=== PATIENT | female | born 1945 | race Caucasian/White ===

== ENCOUNTER 2017-11-03 07:31 | Observation (INO) | payer MEDICARE ==
[~2017-11-03] VITALS: Ht 148.6 cm; Wt 80.3 kg
[~2017-11-03 07:31] MED LIST: ADVAIR HFA 230-12 GM INH; ALENDRONATE SOD70 MG PO; AMLODIPINE BESYL5 MG PO; ATORVASTATIN CA20 MG PO; BENZONATATE100 MG PO; CALCIUM 600 +1 EAC8 PO; FEXOFENADINE H180 MG PO; LOSARTAN POTASS25 MG PO; NEURONTIN300 MG PO; NORVASC10 MG PO; OMEPRAZOLE20 M1 PO; POTASSIUM GLUCO90 MG PO; POTASSIUM GLUCO99 M1 PO; VITAMIN B-121000 MCG PO; VITAMIN C WITH500 MG PO; VITAMIN D-32000 UNIT PO; VITAMIN E400 UNI2 PO; Z.0.HYDROCHLOROTH12. PO; Z.0.NORVASC5 MG PO; Z.0.ZOCOR10 MG; Z.0.ZOCOR20 MG PO; ZYRTEC10 MG PO
[2017-11-03] MEDS ORDERED: ONDANSETRON HCL INJ 2 MG/ML VIAL ONE (07:55)
[2017-11-03] MEDS ORDERED: MORPHINE SULFATE 2 MG/ML SYR IV STA ×2 (07:55→12:30)
[2017-11-03] MEDS ORDERED: ONDANSETRON HCL INJ 2 MG/ML VIAL IV STA ×2 (07:55→12:29)
[2017-11-03] MEDS ORDERED: SODIUM CHLORIDE 0.9% 1000ML 1,000 ML IV STA (07:55)
--- NOTE | 2017-11-03 08:22 | Diagnostic Imaging Report ---
PROCEDURE: CHEST SINGLE (PORTABLE) COMPARISON: 11/02/2016. INDICATIONS: COUGH, VOMITING FINDINGS: LUNGS: No consolidations or edema. PLEURA: No effusions or pneumothorax. HEART \T\ MEDIASTINUM: The heart is within normal size-limits. BONES \T\ SOFT TISSUES: No acute findings. CONCLUSION: No acute cardiopulmonary abnormality. Dictated by: Tate Stern M.D. on 11/03/2017 at 8:22 Electronically approved by: Tate Stern M.D. on 11/03/2017 at 8:22
[2017-11-03 09:02] LABS: BASOPHILS % 0.1 % (0.0-1.0); EOSINOPHILS % 0.2 % (0.0-6.0); HEMATOCRIT 47.2 % (34.2-44.1); HEMOGLOBIN 15.7 g/dL (12.0-16.0); LYMPHOCYTES # (AUTO) 0.3 (1.0-3.2); LYMPHOCYTES % 2.4 % (18.0-39.1); MEAN CORPUSCULAR HEMOGLOBIN 29.6 pg (28-32); MEAN CORPUSCULAR HGB CONC 33.3 g/dL (31-35); MEAN CORPUSCULAR VOLUME 88.9 fL (81-99); MONOCYTES # (AUTO) 0.6 (0.2-0.8); MONOCYTES % 4.2 % (4.4-11.3); NEUTROPHILS # (AUTO) 13.2 (2.1-6.9); NEUTROPHILS % 92.7 % (38.7-80.0); PLATELET COUNT 252 x10e3/uL (140-360); RED BLOOD COUNT 5.31 x10e6/uL (3.6-5.1); RED CELL DISTRIBUTION WIDTH 14.3 % (11.7-14.4)
[2017-11-03 09:18] LABS: ALANINE AMINOTRANSFERASE 27 IU/L (0-55); ALBUMIN 3.9 g/dL (3.5-5.0); ALBUMIN/GLOBULIN RATIO 1.3 (0.8-2.0); ALKALINE PHOSPHATASE 68 IU/L (40-150); AMYLASE 76 U/L (25-125); ANION GAP 12.4 mmol/L (8-16); BLOOD UREA NITROGEN 29 mg/dL (7-26); BUN/CREATININE RATIO 39 (6-25); CALCIUM 8.5 mg/dL (8.4-10.2); CARBON DIOXIDE 25 mmol/L (22-29); CHLORIDE 108 mmol/L (98-107); CREATINE KINASE 32 IU/L (29-168); CREATININE, SERUM 0.75 mg/dL (0.57-1.11); EST GLOMERULAR FILTRATION RATE > 60 ML/MIN (60-); GLUCOSE 142 mg/dL (74-118); LIPASE 35 U/L (8-78); POTASSIUM 3.4 mmol/L (3.5-5.1); SODIUM 142 mmol/L (136-145)
--- NOTE | 2017-11-03 10:30 | Diagnostic Imaging Report ---
PROCEDURE:US ABDOMEN LIMITED COMPARISON:None. INDICATIONS:Right upper quadrant pain TECHNIQUE: Montanez-scale and color doppler transverse and longitudinal images of the right upper quadrant of the abdomen were obtained. FINDINGS: Liver: 12.7 cm in right mid-clavicular line. Normal parenchymal echogenicity. No masses. Main portal vein: 0.8 cm in caliber. Gallbladder: No shadowing calculus, wall thickening, or pericholecystic fluid. Common Bile Duct: 0.3 cm in caliber. Sonographic Ball's sign: Reported as negative. Right kidney: 10.4 cm in length. Normal renal cortical echogenicity. No solid masses or hydronephrosis. Pancreas: The visualized portions are unremarkable. Inferior vena cava: Patent Aorta: Non-aneurysmal Ascites: None in the right upper quadrant of the abdomen. CONCLUSION: No cholelithiasis or sonographic evidence of acute cholecystitis. Dictated by: Tate Stern M.D. on 11/03/2017 at 10:30 Electronically approved by: Tate Stern M.D. on 11/03/2017 at 10:30
[2017-11-03] MEDS ORDERED: SODIUM CHLORIDE 0.9% 1000ML 1,000 ML ONE (11:12)
[2017-11-03] MEDS ORDERED: DIATRIZOATE MEGL/DIATRIZOA SOD 30 ML BTL PO ONE (11:13)
[2017-11-03] MEDS ORDERED: ONDANSETRON HCL 4 MG ORAL DISINTEGRATING TAB PO ONE (12:30)
[2017-11-03] MEDS ORDERED: ACETAMINOPHEN 325 MG TAB PO ONE (12:45)
[2017-11-03 13:06] LABS: BILIRUBIN,URINE 1+ (NEGATIVE); KETONES,URINE NEGATIVE (NEGATIVE); LEUKOCYTE ESTERASE ,URINE NEGATIVE (NEGATIVE); NITRITE,URINE NEGATIVE (NEGATIVE); URINE UROBILINOGEN 0.2 mg/dL (0.2 - 1)
[2017-11-03 13:07] LABS: CLARITY,URINE SL CLOUDY (CLEAR); COLOR,URINE YELLOW (YELLOW); PROTEIN,URINE DIPSTICK 1+ (NEGATIVE)
[2017-11-03 13:27] LABS: BACTERIA,URINE FEW /HPF; EPITHELIAL CELLS,URINE FEW /LPF; MUCUS,URINE MODERATE (RARE); WBC,URINE (MAN) 0-5 /HPF (0-5)
--- NOTE | 2017-11-03 14:32 | Diagnostic Imaging Report ---
PROCEDURE: CT ABDOMEN AND PELVIS WITHOUT CONTRAST TECHNIQUE: The abdomen and pelvis were scanned utilizing a multidetector helical scanner from the diaphragm to the lesser trochanter after the oral administration of Gastrografin. No IV contrast was administered because of per physician request. No IV access. Coronal and sagittal multiplanar reformations were obtained. Total DLP: 637.17 mGy-cm COMPARISON: CT abdomen pelvis 05/21/2012. INDICATIONS: LOWER ABD PAIN FINDINGS: ABSENCE OF INTRAVENOUS CONTRAST DECREASES SENSITIVITY FOR DETECTION OF FOCAL LESIONS AND VASCULAR PATHOLOGY. LOWER THORAX: The 5.1 mm nodule in the right upper lobe abutting the minor fissure is unchanged and consistent with intraparenchymal lymph node (series 2 image 2). HEPATOBILIARY: No focal hepatic lesions. No biliary ductal dilatation. SPLEEN: No splenomegaly. PANCREAS: No focal masses or ductal dilatation. ADRENALS: No adrenal nodules. KIDNEYS/URETERS: No hydronephrosis, stones, or solid mass lesions. 0.2 cm stone in the lower pole of the left kidney. Punctate 1 mm stone in the lower pole the right kidney. Left parapelvic renal cysts. PELVIC ORGANS/BLADDER: Mcmillan catheter is in place. Bladder is decompressed. Uterus is absent. Bilateral ovaries are atrophic. PERITONEUM / RETROPERITONEUM: No free air or fluid. LYMPH NODES: No lymphadenopathy. VESSELS: Unremarkable. GI TRACT: No distention or wall thickening. Appendix is partially visualized with a small appendicolith. BONES AND SOFT TISSUES: Unremarkable. IMPRESSION: Punctate bilateral renal stones. Dictated by: Andrew Gordillo M.D. on 11/03/2017 at 14:32 Electronically approved by: Andrew Gordillo M.D. on 11/03/2017 at 14:32
[2017-11-03] MEDS ORDERED: ONDANSETRON HCL INJ 2 MG/ML VIAL IV PRN (16:30)
[2017-11-03] MEDS ORDERED: MORPHINE SULFATE 2 MG/ML SYR IV PRN (16:30)
[2017-11-03] MEDS: SODIUM CHLORIDE 0.9% 1000ML 1,000 ML IV SCH (16:40)
--- OUTSIDE RECORDS SUMMARY | 2017-11-03 16:41 | XMS REPORT ---
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 Allergies, Adverse Reactions, Alerts This patient has no known allergies or adverse reactions. Medications This patient has no known medications. Results Test Description Test Time Test Comments Text Results Atomic Results Result Comments CT ABDOMEN/PELVIS WO [place] [address] Patient Name: EMILEE PARKS MR #: [id number] : 1945 Age/Sex: 72/F Req #: [id number] Adm Physician: Ordered by: ROGELIO ALICEA MD Report #: [id number] Location: ER Room/Bed: Procedure: 0314- 0021 CT/CT ABDOMEN/PELVIS WO Exam Date: 11/03/17 Exam Time: 1405 REPORT STATUS: Signed PROCEDURE: CT ABDOMEN AND PELVIS WITHOUT CONTRAST TECHNIQUE: The abdomen and pelvis were scanned utilizing a multidetector helical scanner from the diaphragm to the lesser trochanter after the oral administration of Gastrografin. No IV contrast was administered because of per physician request. No IV access. Coronal and sagittal multiplanar reformations were obtained. Total DLP: 637.17 mGy- cm COMPARISON: CT abdomen pelvis 05/21/2012. INDICATIONS: LOWER ABD PAIN FINDINGS: ABSENCE OF INTRAVENOUS CONTRAST DECREASES SENSITIVITY FOR DETECTION OF FOCAL LESIONS AND VASCULAR PATHOLOGY. LOWER THORAX: The 5.1 mm nodule in the right upper lobe abutting the minor fissure is unchanged and consistent with intraparenchymal lymph node (series 2 image 2). HEPATOBILIARY: No focal hepatic lesions. No biliary ductal dilatation. SPLEEN: No splenomegaly. PANCREAS: No focal masses or ductal dilatation. ADRENALS: No adrenal nodules. KIDNEYS/URETERS: No hydronephrosis, stones, or solid mass lesions. 0.2 cm stone in the lower pole of the left kidney. Punctate 1 mm stone in the lower pole the right kidney. Left parapelvic renal cysts. PELVIC ORGANS/BLADDER: Mcmillan catheter is in place. Bladder is decompressed. Uterus is absent. Bilateral ovaries are atrophic. PERITONEUM / RETROPERITONEUM: No free air or fluid. LYMPH NODES: No lymphadenopathy. VESSELS: Unremarkable. GI TRACT: No distention or wall thickening. Appendix is partially visualized with a small appendicolith. BONES AND SOFT TISSUES: Unremarkable. IMPRESSION: Punctate bilateral renal stones. Dictated by: Feliz Chávez M.D. on 11/03/2017 at 14:32 Electronically approved by: Feliz Chávez M.D. on 11/03/2017 at 14:32 Dictated By: FELIZ CHÁVEZ MD 1432 Transcribed By: JOANA on 11/03/17 1432 COPY TO: ROGELIO ALICEA MD CHEST [facility] (PORTABLE) [place] [address] Patient Name: EMILEE PARKS MR #: [id number] : 1945 Age/Sex: 72/F Req #: [id number] Adm Physician: Ordered by: ROGELIO ALICEA MD Report #: [id number] Location: Room/Bed: Procedure: [id number] DX/CHEST SINGLE (PORTABLE) Exam Date: 11/03/17 Exam Time: 08 REPORT STATUS: Signed PROCEDURE: CHEST SINGLE (PORTABLE) COMPARISON: 11/02/2016. INDICATIONS: COUGH, VOMITING FINDINGS: LUNGS: No consolidations or edema. PLEURA: No effusions or pneumothorax. HEART T MEDIASTINUM: The heart is within normal size-limits. BONES T SOFT TISSUES: No acute findings. CONCLUSION: No acute cardiopulmonary abnormality. Dictated by : Nic Broussard M.D. on 11/03/2017 at 8:22 Electronically approved by: Nic Broussard M.D. on 11/03/2017 at 8:22 Dictated By: NIC BROUSSARD MD 1 Transcribed By : JOANA on 11/03/17821 COPY TO: ROGELIO ALICEA MD US ABDOMEN LIMITED [place] [address] Patient Name: EMILEE PARKS MR #: [id number] : 1945 Age/Sex: 72/F Req #: [id number] Adm Physician: Ordered by: ROGELIO ALICEA MD Report #: [id number] Location: ER Room/Bed: Procedure: 0314- 0004 US/US ABDOMEN LIMITED Exam Date: Exam Time: REPORT STATUS: Signed PROCEDURE: US ABDOMEN LIMITED COMPARISON: None. INDICATIONS: Right upper quadrant pain TECHNIQUE: Montanez-scale and color doppler transverse and longitudinal images of the right upper quadrant of the abdomen were obtained. FINDINGS: Liver: 12.7 cm in right mid-clavicular line. Normal parenchymal echogenicity. No masses. Main portal vein: 0.8 cm in caliber. Gallbladder: No shadowing calculus, wall thickening, or pericholecystic fluid. Common Bile Duct: 0.3 cm in caliber. Sonographic Ball's sign: Reported as negative. Right kidney: 10.4 cm in length. Normal renal cortical echogenicity. No solid masses or hydronephrosis. Pancreas: The visualized portions are unremarkable. Inferior vena cava: Patent Aorta: Non-aneurysmal Ascites: None in the right upper quadrant of the abdomen. CONCLUSION: No cholelithiasis or sonographic evidence of acute cholecystitis. Dictated by: Nic Broussard M.D. on 11/03/2017 at 10:30 Electronically approved by: Nic Broussard M.D. on 11/03/2017 at 10:30 Dictated By: NIC BROUSSARD MD 1030 Transcribed By: JOANA on 11/03/17 1030 COPY TO: ROGELIO ALICEA MD
[2017-11-03 17:12] VITALS: BP 157/70
[2017-11-03 19:55] VITALS: BP 157/70
[2017-11-03 20:44] VITALS: BP 148/66
[2017-11-03 23:54] VITALS: BP 134/62
[2017-11-03 23:56] VITALS: BP 134/62
[2017-11-04] VITALS (8 sets, daily range): BP systolic 138–164; BP diastolic 63–74
[2017-11-04] MEDS: SODIUM CHLORIDE 0.9% 1000ML 1,000 ML IV SCH ×3 (00:17→16:50)
[2017-11-04] MEDS ORDERED: ACETAMINOPHEN 325 MG TAB PO PRN (06:30)
[2017-11-04 06:42] LABS: BASOPHILS % 0.2 % (0.0-1.0); EOSINOPHILS % 0.3 % (0.0-6.0); HEMATOCRIT 38.4 % (34.2-44.1); HEMOGLOBIN 12.6 g/dL (12.0-16.0); LYMPHOCYTES # (AUTO) 1.2 (1.0-3.2); MEAN CORPUSCULAR HEMOGLOBIN 29.4 pg (28-32); MEAN CORPUSCULAR HGB CONC 32.8 g/dL (31-35); MEAN CORPUSCULAR VOLUME 89.7 fL (81-99); MONOCYTES # (AUTO) 0.4 (0.2-0.8); MONOCYTES % 6.5 % (4.4-11.3); NEUTROPHILS # (AUTO) 4.3 (2.1-6.9); NEUTROPHILS % 72.8 % (38.7-80.0); PLATELET COUNT 204 x10e3/uL (140-360); RED BLOOD COUNT 4.28 x10e6/uL (3.6-5.1); RED CELL DISTRIBUTION WIDTH 14.6 % (11.7-14.4)
[2017-11-04 07:13] LABS: ALANINE AMINOTRANSFERASE 20 IU/L (0-55); ALBUMIN/GLOBULIN RATIO 1.3 (0.8-2.0); ALKALINE PHOSPHATASE 48 IU/L (40-150); ANION GAP 8.3 mmol/L (8-16); BLOOD UREA NITROGEN 16 mg/dL (7-26); BUN/CREATININE RATIO 26 (6-25); CALCIUM 7.3 mg/dL (8.4-10.2); CARBON DIOXIDE 23 mmol/L (22-29); CHLORIDE 113 mmol/L (98-107); CREATININE, SERUM 0.61 mg/dL (0.57-1.11); EST GLOMERULAR FILTRATION RATE > 60 ML/MIN (60-); GLUCOSE 92 mg/dL (74-118); POTASSIUM 3.3 mmol/L (3.5-5.1); SODIUM 141 mmol/L (136-145)
[2017-11-04] MEDS: CYANOCOBALAMIN 1,000 MCG TAB PO SCH (08:40)
[2017-11-04] MEDS: GABAPENTIN 300 MG CAP PO SCH ×3 (08:40→21:40)
[2017-11-04] MEDS: PANTOPRAZOLE SOD 40 MG TABEC PO SCH (08:40)
[2017-11-04] MEDS: AMLODIPINE BESYLATE 5 MG TAB PO SCH (08:40)
[2017-11-04] MEDS: ASCORBIC ACID 500 MG TAB PO SCH (08:41)
[2017-11-04] MEDS: VITAMIN E 400 UNIT CAP PO SCH (08:41)
[2017-11-04] MEDS ORDERED: PANTOPRAZOLE 40 MG 10ML VIAL IV SCH (09:00)
[2017-11-04] MEDS ORDERED: PANTOPRAZOLE SOD 40 MG TABEC PO SCH (09:00)
[2017-11-04] MEDS ORDERED: POTASSIUM CHLORIDE 10 MEQ TABCR PO ONE (10:15)
[2017-11-04 12:07] LABS: WBC,FECAL (FECAL LACTOFERRIN) POSITIVE (NEGATIVE)
[2017-11-04 13:04] LABS: C DIFFICILE TOXIN A&B AMP PROB NEGATIVE (NEGATIVE)
[2017-11-04] MEDS ORDERED: ATORVASTATIN 20 MG TAB PO SCH (21:00)
[2017-11-05 02:37] VITALS: BP 150/70
[2017-11-05] MEDS: SODIUM CHLORIDE 0.9% 1000ML 1,000 ML IV SCH (02:40)
[2017-11-05 04:00] VITALS: BP 150/60
[2017-11-05 08:27] VITALS: BP 160/80
[2017-11-05] MEDS: AMLODIPINE BESYLATE 5 MG TAB PO SCH (08:27)
[2017-11-05] MEDS: CYANOCOBALAMIN 1,000 MCG TAB PO SCH (08:27)
[2017-11-05] MEDS: VITAMIN E 400 UNIT CAP PO SCH (08:27)
[2017-11-05] MEDS: PANTOPRAZOLE SOD 40 MG TABEC PO SCH (08:27)
[2017-11-05] MEDS: ASCORBIC ACID 500 MG TAB PO SCH (08:27)
[2017-11-05] MEDS: GABAPENTIN 300 MG CAP PO SCH (08:27)
== END 2017-11-05 09:09 | disposition home or self-care (01) ==
LOC: ER 07:31 → EDBEDREQ 16:36 → ERHOLD 16:37 → MED/SURG 16:46
PROVIDERS: ADMIT Internal Medicine; ATTEND Internal Medicine
DX: K52.9 Noninfective gastroenteritis and colitis, unspecified (principal); E86.0 Dehydration; T62.91XA Toxic effect of unspecified noxious substance eaten as food, accidental (unintentional), initial encounter; N20.0 Calculus of kidney; I10 Essential (primary) hypertension; J45.909 Unspecified asthma, uncomplicated; Z87.01 Personal history of pneumonia (recurrent); Z86.73 Personal history of transient ischemic attack (TIA), and cerebral infarction without residual deficits
CPT/HCPCS: 36415 ×2; 51700; 71045; 74176; 76705; 80053 ×2; 81001; 82150; 82550; 82553; 83630; 83690; 84484; 85025 ×2; 87045; 87493; 93005; 99285; G0378 ×3; J2270; J2405; J7030 ×3

== ENCOUNTER 2021-03-13 13:48 | Emergency (ER) | payer MEDICARE ==
[~2021-03-13] VITALS: Ht 270.5 cm; Wt 80.3 kg
[2021-03-13 14:38] LABS: BASOPHILS # (AUTO) 0.1 (0.0-0.1); BASOPHILS % 0.7 % (0.0-1.0); EOSINOPHILS # (AUTO) 0.1 (0.0-0.4); EOSINOPHILS % 0.8 % (0.0-6.0); HEMATOCRIT 43.4 % (34.2-44.1); HEMOGLOBIN 13.8 g/dL (12.0-16.0); LYMPHOCYTES # (AUTO) 1.9 (1.0-3.2); MEAN CORPUSCULAR HEMOGLOBIN 29.2 pg (28-32); MEAN CORPUSCULAR HGB CONC 31.8 g/dL (31-35); MEAN CORPUSCULAR VOLUME 91.9 fL (81-99); MONOCYTES # (AUTO) 0.6 (0.2-0.8); MONOCYTES % 6.7 % (4.4-11.3); NEUTROPHILS # (AUTO) 5.8 (2.1-6.9); NEUTROPHILS % 69.3 % (38.7-80.0); PLATELET COUNT 295 x10e3/uL (140-360); RED BLOOD COUNT 4.72 x10e6/uL (3.6-5.1); RED CELL DISTRIBUTION WIDTH 15.2 % (11.7-14.4)
[2021-03-13 16:36] LABS: ALBUMIN 3.9 g/dL (3.5-5.0); ALBUMIN/GLOBULIN RATIO 1.3 (0.8-2.0); ANION GAP 13.6 mmol/L (8-16); CALCIUM 9.2 mg/dL (8.4-10.2); CREATININE, SERUM 1.1 mg/dL (0.57-1.11); POTASSIUM 4.6 mmol/L (3.5-5.1)
[2021-03-13 16:43] LABS: CREATINE KINASE MB 0.6 ng/mL (0-5.0)
[2021-03-13 19:24] LABS: CLARITY,URINE SL CLOUDY (CLEAR); COLOR,URINE STRAW (YELLOW); KETONES,URINE NEGATIVE (NEGATIVE); LEUKOCYTE ESTERASE ,URINE NEGATIVE (NEGATIVE); NITRITE,URINE NEGATIVE (NEGATIVE); PROTEIN,URINE DIPSTICK NEGATIVE (NEGATIVE); URINE UROBILINOGEN 0.2 mg/dL (0.2 - 1)
[2021-03-13 19:36] LABS: BACTERIA,URINE MODERATE /HPF; EPITHELIAL CELLS,URINE FEW /LPF; WBC,URINE (MAN) 0-5 /HPF (0-5)
[2021-03-13 19:37] LABS: AMORPHOUS SEDIMENT,URINE FEW (FEW); HYALINE CASTS 0-1 (0-1)
[2021-03-13] MEDS ORDERED: DEXAMETHASONE SOD PHOS 10 MG/1 ML VIAL IM ONE (20:00)
[2021-03-13] MEDS ORDERED: DEXAMETHASONE SOD PHOS 10 MG/1 ML VIAL ONE (20:07)
== END 2021-03-13 20:03 | disposition home or self-care (01) ==
LOC: ER 14:12
DX: M54.12 Radiculopathy, cervical region (principal); I10 Essential (primary) hypertension; E78.5 Hyperlipidemia, unspecified; K21.9 Gastro-esophageal reflux disease without esophagitis; F41.9 Anxiety disorder, unspecified; G62.9 Polyneuropathy, unspecified
CPT/HCPCS: 36415; 70450; 71045; 72125; 80053; 81001; 82550; 82553; 84484; 85025; 99284; J1100

== ENCOUNTER 2023-09-29 12:45 | Emergency (ER) | payer MEDICARE | END 2023-09-29 13:28 | disposition left against medical advice (07) | LOC: ER 12:49 | DX: M25.511 Pain in right shoulder (principal) ==